=== PATIENT | female | born 1955 | race Caucasian/White ===

== ENCOUNTER 2018-06-28 10:55 | Outpatient (CLI) | payer OTHER ==
--- NOTE | 2018-06-28 13:03 | Diagnostic Imaging Report ---
PIETRO MILLER (BHARATI) - OP [facility] [id number] [facility] [address] [address] Report Submission Date: Jun 28, 2018 11:21:16 AM CDT Patient Study Name: HENRIETTA CASAS Date: Jun 28, 2018 10:58:20 AM CDT Modality Type: DX Gender: F Description: CHEST 2VIEW : 57 Institution: [facility] Physician: PIETRO MILLER) - OP EXAMINATION: CHEST 2VIEW HISTORY: LEFT BREAST PAIN X 3 MONTHS, ELEVATED BLOOD PRESSURE. (Hx) COMPARISON: None FINDINGS: There is no focal consolidation, pleural effusion, or pneumothorax. The cardiomediastinal silhouette is normal. The visible bony thorax is intact. IMPRESSION: No acute pulmonary process. Electronically signed on Jun 28, 2018 11:21:16 AM CDT by: Umberto MALDONADO
== END 2018-06-28 10:56 ==
LOC: RAD 10:55
PROVIDERS: ATTEND Nurse Practitioner Family
DX: R07.89 Other chest pain (principal)
CPT/HCPCS: 71046